=== PATIENT | male | born 1980 | race Caucasian/White ===

== ENCOUNTER 2016-12-05 10:53 | Emergency (ER) | payer OTHER ==
[2016-12-05 11:05] VITALS: BP 124/72; PULSE 79; TEMP 98.6; BMI 46.2
[2016-12-05] MEDS ORDERED: IBUPROFEN 400 MG TABLET (FP) PO ONE ×2 (11:35)
--- NOTE | 2016-12-05 11:38 | PDOC ---
History of Present Illness - General Chief Complaint: Injury Stated Complaint: ANKEL INJURY Time Seen by Provider: 12/05/16 11:10 History Source: Patient Exam Limitations: No Limitations - History of Present Illness Initial Comments: 12/05/16 11:33 36 year old male with history of a-fib and anxiety present with injury to left ankle sustained this am while playing football. Patient reports while playing football jumped up and landed wrong, externally rotating his ankle. States no weight bearing since then. Complaing of pain with movement and weight bearing. Occurred: reports: this morning Severity: reports: moderate Pain Location: reports: lower extremity Method of Injury: Yes: fall Modifying Factors: improves with: cold therapy, immobilization, pain medication Loss of Consciousness: no loss of consciousness Associated Symptoms (Fall): trouble walking Past History - Travel Traveled outside of the country in the last 30 days: No Close contact w/someone who was outside of country & ill: No - Past Medical History Allergies/Adverse Reactions: Allergies Allergy/AdvReac Type Severity Reaction Status Date / Time No Known Allergies Allergy Verified 12/05/16 10:58 Home Medications: Ambulatory Orders No Home Medications 0 dose .ROUTE UTDICT 04/29/12 Aspirin [ASA -] 325 mg PO DAILY #14 tablet 02/21/13 Metoprolol Succinate [Toprol XL -] 100 mg PO DAILY #14 tab.sr.24h 02/21/13 Ibuprofen 800 mg PO TID #20 tablet 12/05/16 Cardiac Disorders: Yes (afib) - Surgical History Abdominal Surgery: Yes (RUPTURE SPLEEN 14 YRS AGO) - Immunization History Immunization Up to Date: Yes - Psycho/Social/Smoking Cessation Hx Anxiety: No Suicidal Ideation: No Smoking Status: Yes Smoking History: Current some day smoker Have you smoked in the past 12 months: Yes Number of Cigarettes Smoked Daily: 4 Information on smoking cessation initiated: No 'Breaking Loose' booklet given: 02/19/13 Hx Alcohol Use: No Drug/Substance Use Hx: No Substance Use Type: None Trauma Specific PMHX - Complaint Specific PMHX Arthritis: No Back Injury: No Neck Injury: No Hx Sacro Iliac Joint Dysfunction: No Review of Systems - Review of Systems Able to Perform ROS?: Yes Is the patient limited Hungarian proficient: No Constitutional: No: Chills, Fever, Night Sweats, Weakness HEENTM: No: Double Vision, Cataracts, Ear Pain, Ear Discharge, Nose Congestion, Tinnitus, Throat Pain, Throat Swelling, Difficulty Swallowing, Mouth Swelling Respiratory: No: Cough, Orthopnea, Shortness of Breath, Stridor, Wheezing, Productive cough Cardiac (ROS): No: Chest Pain, Lightheadedness, Palpitations, Syncope ABD/GI: No: Abdominal Distended, Blood Streaked Bowels, Constipated : No: Burning, Dysuria, Incontinence Musculoskeletal: Yes: Joint Pain, Joint Swelling Integumentary: Yes: Bruising, Erythema Neurological: No: Numbness, Paresthesia *Physical Exam - Vital Signs Last Vital Signs Temp Pulse Resp BP Pulse Ox 98.6 F 79 20 124/72 96 12/05/16 11:00 12/05/16 11:00 12/05/16 11:00 12/05/16 11:00 12/05/16 11:00 - Physical Exam General Appearance: Yes: Nourished, Appropriately Dressed. No: Apparent Distress HEENT: positive: EOMI, CHRISTINE, TMs Normal, Pharynx Normal Neck: negative: Lymphadenopathy (R), Lymphadenopathy (L) Respiratory/Chest: positive: Lungs Clear. negative: Chest Tender, Normal Breath Sounds, Respiratory Distress Cardiovascular: positive: Regular Rhythm, Regular Rate, S1, S2 Extremity: positive: Normal Capillary Refill, Swelling (of left lateral malleoulus), Erythema, Inflammation (of left ankle) Integumentary: positive: Dry Neurologic: positive: field trainer II-XII NML intact, Fully Oriented, Alert Medical Decision Making - Medical Decision Making 12/05/16 11:38 36 year old male with medical history of a-fib and surgical history of repair of spleen at age 14, has injury to left ankle from fall while playing football this am xray of left foot and ankle ibuprofen 800 mg given 12/05/16 12:40 xray : result with no fracture or dislocation 12/05/16 14:48 arslan wrap and crutches given ( crutch walk taught by AARTI Brock) referred to ortho as needed *DC/Admit/Observation/Transfer Diagnosis at time of Disposition: Left ankle sprain Qualifiers: Encounter type: initial encounter Involved ligament of ankle: unspecified ligament Qualified Code(s): S93.402A - Sprain of unspecified ligament of left ankle, initial encounter - Discharge Dispostion Admit: No - Prescriptions Prescriptions: Ibuprofen 800 mg PO TID #20 tablet - Referrals Referrals: Zakiya Mixon MD [Primary Care Provider] - Brian Tovar MD [Staff Physician] - 1 week - Patient Instructions Printed Discharge Instructions: DI for Ankle Sprain Additional Instructions: Activity as tolerated. Please do not use crutches on stair, apply arslan wrap when up and remove for sleep and shower. Apply ice compress for 20 minutes and off for 30 minutes 3 times daily for 3 days Elevate leg at rest. May call orthopedics for appointment if no improvement in pain and swelling after one week - Post Discharge Activity Work/School Note: Back to Work
== END 2016-12-05 13:14 | disposition home or self-care (01) ==
LOC: JERFT 10:53
DX: S93.402A Sprain of unspecified ligament of left ankle, initial encounter (principal); X58.XXXA Exposure to other specified factors, initial encounter; Y93.61 Activity, american tackle football; Y92.89 Other specified places as the place of occurrence of the external cause; I48.91 Unspecified atrial fibrillation; F17.210 Nicotine dependence, cigarettes, uncomplicated
CPT/HCPCS: 73610-TC-LT; 73630-TC-LT; 99281-25

== ENCOUNTER 2018-08-30 10:51 | Day surgery (SDC) | payer OTHER | END 2018-08-30 13:53 | disposition home or self-care (01) | LOC: FASU 10:51 ==